=== PATIENT | female | born 1965 | race Caucasian/White ===

== ENCOUNTER 2017-02-08 07:55 | Emergency (ER) | payer OTHER ==
[2017-02-08 08:19] VITALS: PULSE 63; O2SAT 99
--- NOTE | 2017-02-08 08:25 | ERPHSYRPT ---
- History of Present Illness Time Seen by Provider: 02/08/17 08:19 Source: patient, model maker scale Patient Subjective Stated Complaint: pt reports skin irritation and redness to the neck and throat. states she just finished her radiation course which included 28 sessions of high dose radiation for throat cancer. states she is having pain to the neck and throat and belives she has an infection to the skin. reports using a cream to the site throughout the duration of her treatment. Triage Nursing Assessment: pt is aox3, resps easy and non labored, radial pulses strong and equal, skin pink warm and dry. an area of red, irritated skin noted to the neck and throat in the shape of a rectangle, skin is intact, no drainage or odor present. Physician History: This is a 51-year-old white female who states that she has a history of throat cancer she's been receiving radiation therapy for 28 days. She arrives with a well-circumscribed erythematous area to her anterior neck she states that for the past several days she's been having drainage she has not had any fevers. She is concerned that she has an infection in the skin. No other complaints. Patient does have a cream that she has been provided by her radiation therapy physician for the area. Past medical history includes peripheral neuropathy, throat cancer, high blood pressure, diabetes, arthritis, anxiety, depression. Past surgical history includes tubal ligation. Social history positive tobacco use in the past patient states she has quit. Timing/Duration: day(s) (2 days), other (patient with erythema anterior neck secondary to radiation treatment however past 2 days it has been having a drainage) Severity: moderate Modifying Factors: Improves With: nothing Associated Symptoms: rash (drainage from erythematous skin antterior neck), No nausea, No vomiting, No abdominal pain, No shortness of breath, No heartburn, No diaphoresis, No cough, No chills, No chest pain, No fever, No headaches, No loss of appetite, No malaise Allergies/Adverse Reactions: No Known Drug Allergies Allergy (Unverified 07/31/15 17:09) Home Medications: Carvedilol 6.25 mg [Coreg 6.25 MG] 6.25 mg PO DAILY 07/31/15 [History] Citalopram Hydrobromide [Celexa] 40 mg PO DAILY 07/31/15 [History] Gabapentin [Neurontin] 300 mg PO TID 07/31/15 [History] Meloxicam 15 mg [Meloxicam 15 MG] 15 mg PO DAILY 07/31/15 [History] Metformin HCl 1000 mg [Glucophage 1000 MG] 1,000 mg PO BID 07/31/15 [History] Trazodone HCl 50 mg [Desyrel 50 mg] 100 mg PO DAILY 07/31/15 [History] Hx Tetanus, Diphtheria Vaccination/Date Given: Yes Hx Influenza Vaccination/Date Given: No Hx Pneumococcal Vaccination/Date Given: Yes - Review of Systems Constitutional: No Fever, No Chills Eyes: No Symptoms Ears, Nose, & Throat: Throat Pain, No Ear Pain, No Ear Discharge, No Hearing Changes, No Tinnitus, No Nose Pain, No Nose Congestion, No Nose Discharge, No Sinus Drainage, No Epistaxis, No Mouth Pain, No Mouth Swelling, No Loose Teeth, No Throat Swelling, No Hoarse, No Painful Swallowing, No Snoring, No Stridor Respiratory: No Cough, No Dyspnea Cardiac: No Chest Pain, No Edema, No Syncope Abdominal/Gastrointestinal: No Abdominal Pain, No Nausea, No Vomiting, No Diarrhea Genitourinary Symptoms: No Dysuria Musculoskeletal: No Back Pain, No Neck Pain Skin: Other (erythematous skin anterior neck secondary to radiation treatment. Patient states drainage past 2 days), No Rash Neurological: No Dizziness, No Focal Weakness, No Sensory Changes Psychological: No Symptoms Endocrine: No Symptoms - Past Medical History Pertinent Past Medical History: Yes Neurological History: Peripheral Neuropathy Cardiac History: Hypertension Respiratory History: Other Endocrine Medical History: Diabetes Type II Musculoskeletal History: Other GI Medical History: GERD Psycho-Social History: Depression Other Medical History: insomnia, throat cancer, neck fusion - Past Surgical History Past Surgical History: Yes Musculoskeletal: Other Female Surgical History: Tubal Ligation Other Surgical History: neck - fusion - Social History Smoking Status: Former smoker How long have you smoked: yrs Exposure to second hand smoke: Yes Drug Use: none Patient Lives Alone: No - Female History Hx Last Menstrual Period: 01/09/17 - Nursing Vital Signs Nursing Vital Signs: Initial Vital Signs Temperature 98.5 F 02/08/17 08:01 Pulse Rate 63 02/08/17 08:01 Respiratory Rate 20 02/08/17 08:01 O2 Sat by Pulse Oximetry 99 02/08/17 08:01 Pain Scale Pain Intensity 6 - Physical Exam General Appearance: no apparent distress, alert, other (well-developed well- nourished whitefemale talks in a whisper) Eye Exam: PERRL/EOMI, eyes nml inspection Ears, Nose, Throat Exam: normal ENT inspection, TMs normal, pharynx normal, moist mucous membranes Neck Exam: normal inspection, non-tender, supple, full range of motion Respiratory Exam: normal breath sounds, lungs clear, No respiratory distress Cardiovascular Exam: regular rate/rhythm, normal heart sounds, normal peripheral pulses Gastrointestinal/Abdomen Exam: soft, normal bowel sounds, No tenderness, No mass Back Exam: normal inspection, normal range of motion, No CVA tenderness, No vertebral tenderness Extremity Exam: normal inspection, normal range of motion, pelvis stable Neurologic Exam: alert, oriented x 3, cooperative, normal mood/affect, nml cerebellar function, nml station & gait, sensation nml, No motor deficits Skin Exam: other (well-circumscribed 4" x 3" area anterior neck skin is erythematous) Lymphatic Exam: No adenopathy SpO2 Interpretation: normal (99%) SpO2: 99 Oxygen Delivery: Room Air - Course Nursing assessment & vital signs reviewed: Yes - Progress Progress: improved Progress Note: 02/08/17 08:24 This is a 51-year-old white female with history of throat cancer who is receiving radiation therapy. She has a well-circumscribed approximately 3" x 4" area to her anterior neck secondary to her radiation treatment which she has received over 28 days. Patient states she has been given a cream for of skin irritation by her local physician. Patient states that she is not having weepage and drainage from the area on physical examination the skin appears to be erythematous. Will go ahead and place patient on Bactrim DS one orally twice a day for 10 days. Patient has been advised to continue the cream which has been provided to her by her radiation physician she is to follow-up with her radiation physician. - Departure Time of Disposition: 08:25 Departure Disposition: Home Clinical Impression: skin irritation secondary to radiation Cellulitis Qualifiers: Site of cellulitis: neck Qualified Code(s): L03.221 - Cellulitis of neck Condition: Fair Critical Care Time: No Referrals: RIVER GRIGSBY [Primary Care Provider] - Additional Instructions: Return home. Bactrim DS one orally twice a day for 10 days. Follow-up with your family doctor or your radiation oncologist. Return for acute distress or for severe symptoms. Prescriptions: Smz/Tmp Ds Tablet [Bactrim Ds Tablet] 1 tab PO BID #20 tablet
== END 2017-02-08 08:38 | disposition home or self-care (01) ==
LOC: ED 07:55
DX: L03.221 Cellulitis of neck (principal); L59.8 Other specified disorders of the skin and subcutaneous tissue related to radiation; Z77.123 Contact with and (suspected) exposure to radon and other naturally occurring radiation; C14.0 Malignant neoplasm of pharynx, unspecified; I10 Essential (primary) hypertension; E11.9 Type 2 diabetes mellitus without complications; Z79.899 Other long term (current) drug therapy
CPT/HCPCS: 99281

== ENCOUNTER 2018-06-25 08:46 | Day surgery (SDC) | payer OTHER ==
[2018-06-25] MEDS ORDERED: DIPRIVAN 200 MG/20 ML IV ONE (08:47)
[2018-06-25] MEDS ORDERED: Ketamine HCl 50 MG/ML IV ONE (08:47)
[2018-06-25] MEDS ORDERED: Sodium Chloride 0.9(Preservative Free) 10 ML IJ ONE (08:47)
[2018-06-25] MEDS ORDERED: Xylocaine 1% Vial 30 ML PF IJ ONE (08:47)
[2018-06-25] MEDS ORDERED: Depo-Medrol 40 MG/ML IM ONE (08:47)
--- NOTE | 2018-06-25 11:29 | XRAY ---
15 seconds fluoroscopy time in surgery for L5-S1 BRET.
--- NOTE | 2018-06-25 11:30 | XRAY ---
Indication: L5-S1 BRET. Intraoperative fluoroscopy was provided for 15 seconds. 2 digital spot images submitted for interpretation demonstrates posterior midline spinal needle tip projecting just posterior to the L5-S1 interspace. Correlate with intraoperative findings/report.
[2018-06-25] MEDS ORDERED: Lactated Ringers 1,000 ML IV ONE (14:27)
== END 2018-06-25 10:54 | disposition home or self-care (01) ==
LOC: SDC-PAIN 08:46
PROVIDERS: ATTEND Psychiatry & Neurology Pain Medicine
DX: M54.16 Radiculopathy, lumbar region (principal); I10 Essential (primary) hypertension; E11.9 Type 2 diabetes mellitus without complications; J44.9 Chronic obstructive pulmonary disease, unspecified; Z79.899 Other long term (current) drug therapy
CPT/HCPCS: 72100; 77003; J1030; J2001; J2704

== ENCOUNTER 2018-10-08 09:54 | Day surgery (SDC) | payer OTHER ==
[2018-10-08] MEDS ORDERED: Sodium Chloride 0.9(Preservative Free) 10 ML IJ ONE (09:55)
[2018-10-08] MEDS ORDERED: Depo-Medrol 40 MG/ML IM ONE (09:55)
[2018-10-08] MEDS ORDERED: Ketamine HCl 50 MG/ML ONE (11:14)
[2018-10-08] MEDS ORDERED: DIPRIVAN 200 MG/20 ML IV ONE (11:14)
--- NOTE | 2018-10-08 12:34 | XRAY ---
Indication: Left L3-S1 transforaminal BRET. Intraoperative fluoroscopy was provided for 22 seconds. 3 digital spot images submitted for interpretation demonstrates posterior needle tips projecting over the expected course of the left L3-L5 nerve roots. Small amount of contrast injected for needle tip placement. Correlate with intraoperative findings/report.
--- NOTE | 2018-10-08 12:37 | XRAY ---
22 seconds fluoroscopy time in surgery for left L3-S1 BRET.
[2018-10-08] MEDS ORDERED: Lactated Ringers 1,000 ML IV ONE (13:27)
== END 2018-10-08 11:42 | disposition home or self-care (01) ==
LOC: SDC-PAIN 09:54
PROVIDERS: ATTEND Psychiatry & Neurology Pain Medicine
DX: M54.16 Radiculopathy, lumbar region (principal); I10 Essential (primary) hypertension; E11.9 Type 2 diabetes mellitus without complications; J44.9 Chronic obstructive pulmonary disease, unspecified; F41.8 Other specified anxiety disorders; K21.9 Gastro-esophageal reflux disease without esophagitis
CPT/HCPCS: 64483; 64484; 72020; 77003; 82962; 84703; J1030; J2704; Q9966

== ENCOUNTER 2019-02-09 04:28 | Emergency (ER) | payer OTHER ==
--- NOTE | 2019-02-09 04:41 | ERPHSYRPT ---
- History of Present Illness Time Seen by Provider: 02/09/19 04:40 Source: patient Exam Limitations: no limitations Physician History: 53 y/o white female with chronic neck and low back pain issues presents with left lower back pain described as painful, shooting numbness down left buttock into left foot. no acute injury. pt states sx present 2 days ago. seen by dr. galvan for another condition saturday, but did not have this pain until saturday pm. pt has a pain specialist, dr. garza. Timing/Duration: day(s) (2) Method of Injury: other (no injury) Quality: radiating, sharp Back Pain Location: lumbar spine Back Pain Radiation: buttocks, feet (left) Severity of Pain-Max: moderate Severity of Pain-Current: moderate Associated Symptoms: numbness in legs/feet, tingling in legs/feet, lower back pain Previous symptoms: same symptoms as today Allergies/Adverse Reactions: bee venom protein (honey bee) Allergy (Verified 02/08/17 08:20) Zxdwfyn-Gle-Uyr Reductase Inhibitor Allergy (Verified 02/08/17 08:20) Home Medications: Carvedilol 6.25 mg [Coreg 6.25 MG] 6.25 mg PO DAILY 07/31/15 [History] Gabapentin [Neurontin] 600 mg PO TID 07/31/15 [History] Metformin HCl 1000 mg [Glucophage 1000 MG] 500 mg PO BID 07/31/15 [History] Trazodone HCl 50 mg [Desyrel 50 mg] 100 mg PO DAILY 07/31/15 [History] Amitriptyline HCl 25 mg [Elavil 25 mg] 25 mg PO 06/04/18 [History] Baclofen 10 mg [Lioresal 10 mg] 10 mg PO TID 06/04/18 [History] Bupropion HCl [Wellbutrin Sr] 150 mg PO 06/04/18 [History] Lisinopril/Hydrochlorothiazide [Lisinopril-Hctz 10-12.5 mg Tab] 1 each PO [History] Meclizine HCl 25 mg [Antivert 25 mg] 25 mg PO 06/04/18 [History] Omeprazole 20 06/04/18 [History] Venlafaxine HCl [Effexor] 100 mg PO 06/04/18 [History] Hx Tetanus, Diphtheria Vaccination/Date Given: Yes Hx Influenza Vaccination/Date Given: No Hx Pneumococcal Vaccination/Date Given: Yes - Review of Systems Constitutional: No Symptoms Eyes: No Symptoms Ears, Nose, & Throat: No Symptoms Respiratory: No Symptoms Cardiac: No Symptoms Abdominal/Gastrointestinal: No Symptoms Genitourinary Symptoms: No Symptoms Musculoskeletal: Back Pain Skin: No Symptoms Neurological: No Symptoms Psychological: No Symptoms Endocrine: No Symptoms Hematologic/Lymphatic: No Symptoms Immunological/Allergic: No Symptoms All Other Systems: Reviewed and Negative - Past Medical History Pertinent Past Medical History: Yes Neurological History: Peripheral Neuropathy ENT History: Other Cardiac History: Hypertension Respiratory History: Other Endocrine Medical History: Diabetes Type II Musculoskeletal History: Arthritis, Degenerative Disk Disease GI Medical History: GERD History: No Pertinent History Psycho-Social History: Anxiety Female Reproductive Disorders: No Pertinent History Other Medical History: throat CA, now in remission - Past Surgical History Past Surgical History: Yes Neuro Surgical History: No Pertinent History Cardiac: No Pertinent History Respiratory: No Pertinent History Gastrointestinal: No Pertinent History Genitourinary: No Pertinent History, Kidney Transplant Musculoskeletal: Other Female Surgical History: No Pertinent History Other Surgical History: neck surgery - Social History Smoking Status: Former smoker How long have you smoked: yrs Exposure to second hand smoke: Yes Drug Use: marijuana, methamphetamines Patient Lives Alone: No - Nursing Vital Signs Nursing Vital Signs: Initial Vital Signs Temperature 97.6 F 02/09/19 04:28 Pulse Rate 91 H 02/09/19 04:28 Respiratory Rate 18 02/09/19 04:28 Blood Pressure 158/86 02/09/19 04:28 O2 Sat by Pulse Oximetry 99 02/09/19 04:28 Pain Scale Pain Intensity [Left Posterior 10 Back] Pain Intensity 10 - Physical Exam General Appearance: no apparent distress, alert, anxiety Eye Exam: PERRL/EOMI, eyes nml inspection Ears, Nose, Throat Exam: normal ENT inspection, moist mucous membranes Neck Exam: normal inspection, non-tender, supple, full range of motion Respiratory Exam: No chest tenderness Gastrointestinal Exam: No tenderness Pelvic Exam: not done Rectal Exam: not done Back Exam: normal inspection, normal range of motion, No CVA tenderness, No vertebral tenderness Extremity Exam: normal inspection, normal range of motion, pelvis stable Neurologic Exam: alert, oriented x 3, cooperative, patient accounts manager II-XII nml as tested Skin Exam: normal color, warm, dry Lymphatic Exam: No adenopathy SpO2 Interpretation: normal O2 Delivery: Room Air - Course Nursing assessment & vital signs reviewed: Yes - Progress Progress: unchanged Counseled pt/family regarding: diagnosis, need for follow-up - Departure Departure Disposition: Home Clinical Impression: Sciatica Condition: Stable Critical Care Time: No Referrals: JEMMA GALVAN MD [Primary Care Provider] - Additional Instructions: follow up with dr. galvan and pain specialist for further management of your sciatica. stop your baclofen while taking soma/carisoprodol medication Prescriptions: Carisoprodol 350 mg [Soma 350 mg] 350 mg PO Q12H PRN PRN #6 tablet PRN Reason: Muscle Spasms Prednisone 5 mg [Deltasone 5 mg] 5 mg PO TID #12 tablet
[2019-02-09] MEDS ORDERED: solu-MEDROL 125 MG IM ONE (05:04)
[2019-02-09] MEDS ORDERED: Norflex 60 MG/2 ML IM ONE (05:05)
[2019-02-09] MEDS ORDERED: Norflex 60 MG/2 ML ONE (05:10)
[2019-02-09] MEDS ORDERED: solu-MEDROL 125 MG ONE (05:10)
[2019-02-09 05:18] VITALS: BP 120/100; PULSE 80; O2SAT 97
== END 2019-02-09 05:23 | disposition home or self-care (01) ==
LOC: ED 04:28
DX: M54.30 Sciatica, unspecified side (principal)
CPT/HCPCS: 96372; 99284; J2360; J2930

== ENCOUNTER 2022-04-19 03:22 | Emergency (ER) | payer OTHER ==
--- NOTE | 2022-04-19 03:31 | ERPHSYRPT ---
- History of Present Illness Time Seen by Provider: 04/19/22 03:31 Source: patient, family Exam Limitations: no limitations Physician History: This is a 56-year-old white female patient who has chronic neck and back issues and was getting up to use the bathroom in the dark and when she returned she reached out to grab the side of the bed and it was not there and she lost her balance, then she fell forward hitting her head. Patient is on Plavix. She did not lose consciousness per her report. She has some mild neck pain. There are no lacerations to her scalp. Patient is diabetic, has a history of hypertension, peripheral neuropathy, anxiety and gastroesophageal reflux disease. She has no other complaints of pain. Occurred: just prior to arrival Reason for Fall: fell from standing pos Injuries/Pain Location: head, neck Loss of Consciousness: no loss of consciousness Quality: aching Severity of Pain-Max: mild Severity of Pain-Current: mild Modifying Factors: Improves With: nothing Associated Symptoms (Fall): neck pain (Mild), No back pain, No chest pain, No dizziness, No extremity injury Allergies/Adverse Reactions: bee venom protein (honey bee) Allergy (Verified 04/19/22 03:44) lamotrigine Allergy (Verified 04/19/22 03:44) oxcarbazepine Allergy (Verified 04/19/22 03:44) Rash Gtirjod-NGE-QxC Reductase Inhibitor [Wlnitki-Sqm-Wqe Reductase Inhibitor] Allergy (Verified 04/19/22 03:44) Home Medications: Carvedilol [Coreg 6.25 MG] 12.5 mg PO BID 07/31/15 [History] Gabapentin [Neurontin] See Rx Instructions .ROUTE .COMPLEX 07/31/15 [History] Metformin HCl 1000 mg [Glucophage 1000 MG] 500 mg PO BID 07/31/15 [History] Trazodone HCl 50 mg [Desyrel 50 mg] 100 mg PO DAILY 07/31/15 [History] Amitriptyline HCl 25 mg [Elavil 25 mg] 150 mg PO HS 06/04/18 [History] Baclofen 10 mg [Lioresal 10 mg] 10 mg PO TID 06/04/18 [History] Lisinopril/Hydrochlorothiazide [Lisinopril-Hctz 10-12.5 mg Tab] 1 each PO DAILY 06/04/18 [History] Meclizine HCl 25 mg [Antivert 25 mg] 12.5 mg PO TID PRN 06/04/18 [History] Omeprazole 40 mg PO DAILY 06/04/18 [History] buPROPion HCL [Wellbutrin Sr] 200 mg PO BID 06/04/18 [History] Atorvastatin Calcium 40 mg PO DAILY 04/19/22 [History] Buspirone HCl 7.5 mg PO BID 04/19/22 [History] Cilostazol 100 mg [Pletal 100 MG] 100 mg PO BID 04/19/22 [History] Clopidogrel Bisulfate [Plavix] 75 mg PO DAILY 04/19/22 [History] Ezetimibe 10 mg [Zetia 10 MG] 10 mg PO DAILY 04/19/22 [History] Famotidine 20 mg PO BID 04/19/22 [History] Hx Tetanus, Diphtheria Vaccination/Date Given: Yes Hx Influenza Vaccination/Date Given: No Hx Pneumococcal Vaccination/Date Given: Yes Travel Risk - International Travel Have you traveled outside of the country in past 3 weeks: No - Coronavirus Screening Are you exhibiting any of the following symptoms?: No Close contact with a COVID-19 positive Pt in past 14-21 Days: No - Review of Systems Constitutional: No Symptoms Eyes: No Symptoms Ears, Nose, & Throat: No Symptoms Respiratory: No Symptoms Cardiac: No Symptoms Abdominal/Gastrointestinal: No Symptoms Genitourinary Symptoms: No Symptoms Musculoskeletal: Neck Pain, Fall Skin: No Symptoms Neurological: Headache Psychological: No Symptoms Endocrine: No Symptoms Hematologic/Lymphatic: No Symptoms Immunological/Allergic: No Symptoms All Other Systems: Reviewed and Negative - Past Medical History Pertinent Past Medical History: Yes Neurological History: Peripheral Neuropathy ENT History: Other Cardiac History: High Cholesterol, Hypertension Respiratory History: No Pertinent History Endocrine Medical History: Diabetes Type II, Hypothyroidism, Other Musculoskeletal History: Degenerative Disk Disease, Fractures, Osteoarthritis GI Medical History: GERD History: No Pertinent History Psycho-Social History: Anxiety Female Reproductive Disorders: No Pertinent History Other Medical History: 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 SX HX - C4-5 FUSION - Past Surgical History Past Surgical History: Yes Neuro Surgical History: No Pertinent History Cardiac: No Pertinent History Respiratory: No Pertinent History Gastrointestinal: No Pertinent History Genitourinary: No Pertinent History, Kidney Transplant Musculoskeletal: Other Female Surgical History: No Pertinent History Other Surgical History: neck surgery - Social History Smoking Status: Former smoker How long have you smoked: yrs Exposure to second hand smoke: Yes Drug Use: marijuana, methamphetamines Patient Lives Alone: No - Nursing Vital Signs Nursing Vital Signs: Initial Vital Signs Temperature 97.8 F 04/19/22 03:33 Pulse Rate 77 04/19/22 03:33 Respiratory Rate 16 04/19/22 03:33 Blood Pressure 140/69 04/19/22 03:33 O2 Sat by Pulse Oximetry 98 04/19/22 03:33 Pain Scale Pain Intensity 7 - [place] Coma Score Best Eye Response ([place]): (4) open spontaneously Best Verbal Response ([place]): (5) oriented Best Motor Response ([place]): (6) obeys commands [place] Total: 15 - Physical Exam General Appearance: no apparent distress, alert, anxiety Head Injury: no evidence of injury Eye Exam: PERRL/EOMI, eyes nml inspection ENT Exam: airway nml, nml ext.inspection, hearing grossly normal Neck Exam: supple, trachea midline, full range of motion, normal alignment, normal inspection Respiratory/Chest Exam: No chest tenderness, No respiratory distress, No ecchymosis, No crepitus Cardiovascular Exam: normal heart sounds Gastrointestinal Exam: No tenderness Rectal Exam: not done Back Exam: normal inspection, normal range of motion, No CVA tenderness, No vertebral tenderness Extremity Exam: normal inspection, normal range of motion, capillary refill <3 sec, pelvis stable Neurologic Exam: alert, oriented x 3, cooperative, business strategy manager II-XII nml as tested, normal mood/affect, nml cerebellar function, nml station & gait, sensation nml Skin Exam: normal color, warm, dry SpO2 Interpretation: normal O2 Delivery: Room Air - Course Nursing assessment & vital signs reviewed: Yes Ordered Tests: Active Orders 24 hr Category Date Time Status CERVICAL SPINE WO CONTRAST [CT] Stat Exams 04/19/22 03:39 Taken HEAD WITHOUT CONTRAST [CT] Stat Exams 04/19/22 03:39 Taken - Progress Progress: improved Progress Note: 04/19/22 04:54 CT scan of the head without contrast shows no acute intracranial abnormality. CT scan of the cervical spine without contrast shows no acute fracture or subluxation. Counseled pt/family regarding: diagnosis, need for follow-up, rad results - Departure Departure Disposition: Home Clinical Impression: Fall with no significant injury Condition: Stable Critical Care Time: No Referrals: JEMMA CARTER MD [Primary Care Provider] - Follow up/PCP as directed Additional Instructions: Continue medication as prescribed. Follow-up with primary care provider for further evaluation management.
[2022-04-19 03:50] VITALS: BP 140/69
[2022-04-19 05:01] VITALS: PULSE 72; O2SAT 97
--- NOTE | 2022-04-19 08:50 | XRAY ---
Indication: Pain following fall. Multiple contiguous axial images obtained through the head without contrast. Comparison: None Left posterior vertex demonstrates small focus scalp hematoma. Otherwise normal appearing brain parenchyma, ventricles, and bony calvarium for patient's age. Visualized paranasal sinuses and mastoid air cells are clear. Impression: Left vertex scalp hematoma. No underlying fracture or acute intracranial abnormalities. Comment: Preliminary interpretation made by [facility]. No critical discrepancy.
--- NOTE | 2022-04-19 08:51 | XRAY ---
Indication: Pain following fall. Multiple contiguous axial images obtained through the cervical spine. Sagittal and coronal reformatted images obtained. Comparison: None C4-C7 fusion hardware/intervertebral spacers produces beam artifact limiting these levels. Axial images grossly negative for acute fracture or suspicious bony lesions. Mild/moderate C5-C7 degenerative endplate spurring. Additional moderate atlantoaxial degenerative changes. Sagittal and coronal reformatted images demonstrate normal alignment. No acute compression fracture, subluxation, or jumped facet. Normal appearing craniocervical junction. Visualized noncontrasted soft tissues including lung apices are clear. Impression: 1. Beam artifact from C4-C7 fusion hardware. 2. Grossly negative for acute fracture/subluxation. 3. Multilevel degenerative changes. Comment: Preliminary interpretation made by [facility]. No critical discrepancy.
== END 2022-04-19 05:01 | disposition home or self-care (01) ==
LOC: ED 03:22
DX: Z04.3 Encounter for examination and observation following other accident (principal); M54.2 Cervicalgia; E11.42 Type 2 diabetes mellitus with diabetic polyneuropathy; I10 Essential (primary) hypertension; E78.5 Hyperlipidemia, unspecified; Z79.84 Long term (current) use of oral hypoglycemic drugs; Z79.02 Long term (current) use of antithrombotics/antiplatelets; Z79.899 Other long term (current) drug therapy
CPT/HCPCS: 70450; 72125; 99283

== ENCOUNTER 2022-11-30 12:20 | Emergency (ER) | payer OTHER ==
--- NOTE | 2022-11-30 12:25 | ERPHSYRPT ---
- History of Present Illness Time Seen by Provider: 11/30/22 12:25 Source: patient Exam Limitations: no limitations Physician History: This is a 57-year-old obese white female patient of Dr. Carter who just saw Dr. Carter within the last week at her office appointment. Patient falls frequently. Patient is on Plavix. Yesterday, patient did feel some weakness and off balance and today she actually fell. Patient uses all cane or a walker. Despite those ambulating aids, she tends to fall. Today she fell and hit her head on the left side causing abrasion over the left forehead, abrasions of bilateral hands and abrasions of bilateral anterior knees. Patient is diabetic, she has hypertension, hyperlipidemia, anxiety, gastroesophageal reflux disease, chronic neck and back issues and peripheral neuropathy. She currently has no chest pain and denies shortness of breath. She denies abdominal pain. Occurred: just prior to arrival Reason for Fall: lost balance Injuries/Pain Location: head Loss of Consciousness: no loss of consciousness Quality: aching, sharpness Severity of Pain-Max: mild Severity of Pain-Current: mild Modifying Factors: Improves With: movement Associated Symptoms (Fall): headache, No abdominal pain, No back pain, No confusion, No chest pain, No neck pain Allergies/Adverse Reactions: bee venom protein (honey bee) Allergy (Verified 11/30/22 12:30) lamotrigine Allergy (Verified 11/30/22 12:30) oxcarbazepine Allergy (Verified 11/30/22 12:30) Rash Ppigand-SZX-EuA Reductase Inhibitor [Wgansfc-Tej-Hha Reductase Inhibitor] Allergy (Verified 11/30/22 12:30) Home Medications: Carvedilol [Coreg 6.25 MG] 12.5 mg PO BID 07/31/15 [History] Gabapentin [Neurontin] See Rx Instructions .ROUTE .COMPLEX 07/31/15 [History] Metformin HCl 1000 mg [Glucophage 1000 MG] 500 mg PO BID 07/31/15 [History] Trazodone HCl 50 mg [Desyrel 50 mg] 100 mg PO DAILY 07/31/15 [History] Amitriptyline HCl 25 mg [Elavil 25 mg] 150 mg PO HS 06/04/18 [History] Baclofen 10 mg [Lioresal 10 mg] 10 mg PO TID 06/04/18 [History] Lisinopril/Hydrochlorothiazide [Lisinopril-Hctz 10-12.5 mg Tab] 1 each PO DAILY 06/04/18 [History] Meclizine HCl 25 mg [Antivert 25 mg] 12.5 mg PO TID PRN 06/04/18 [History] Omeprazole 40 mg PO DAILY 06/04/18 [History] buPROPion HCL [Wellbutrin Sr] 200 mg PO BID 06/04/18 [History] Atorvastatin Calcium 40 mg PO DAILY 04/19/22 [History] Buspirone HCl 7.5 mg PO BID 04/19/22 [History] Cilostazol 100 mg [Pletal 100 MG] 100 mg PO BID 04/19/22 [History] Clopidogrel Bisulfate [Plavix] 75 mg PO DAILY 04/19/22 [History] Ezetimibe 10 mg [Zetia 10 MG] 10 mg PO DAILY 04/19/22 [History] Famotidine 20 mg PO BID 04/19/22 [History] Hx Tetanus, Diphtheria Vaccination/Date Given: Yes Hx Influenza Vaccination/Date Given: No Hx Pneumococcal Vaccination/Date Given: Yes Travel Risk - International Travel Have you traveled outside of the country in past 3 weeks: No - Coronavirus Screening Are you exhibiting any of the following symptoms?: No Close contact with a COVID-19 positive Pt in past 14-21 Days: No - Vaccine Status Have you recieved a Covid-19 vaccination: Yes 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[employer] - Vaccination Dates Date of 2cond Vaccination (if applicable): n/a - Review of Systems Constitutional: No Symptoms Eyes: No Symptoms Ears, Nose, & Throat: No Symptoms Respiratory: No Symptoms Cardiac: No Symptoms Abdominal/Gastrointestinal: No Symptoms Genitourinary Symptoms: No Symptoms Musculoskeletal: Fall, Injury (Bilateral anterior knees and bilateral hands) Skin: Other (Abrasion left forehead, skin of bilateral hands and skin of bilateral anterior knees) Neurological: No Symptoms Psychological: No Symptoms Endocrine: No Symptoms Hematologic/Lymphatic: No Symptoms Immunological/Allergic: No Symptoms All Other Systems: Reviewed and Negative - Past Medical History Pertinent Past Medical History: Yes Neurological History: Peripheral Neuropathy ENT History: Other Cardiac History: High Cholesterol, Hypertension Respiratory History: No Pertinent History Endocrine Medical History: Diabetes Type II, Hypothyroidism, Other Musculoskeletal History: Degenerative Disk Disease, Fractures, Osteoarthritis GI Medical History: GERD History: No Pertinent History Psycho-Social History: Anxiety Female Reproductive Disorders: No Pertinent History Other Medical History: 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 SX HX - C4-5 FUSION - Past Surgical History Past Surgical History: Yes Neuro Surgical History: No Pertinent History Cardiac: No Pertinent History Respiratory: No Pertinent History Gastrointestinal: No Pertinent History Genitourinary: No Pertinent History, Kidney Transplant Musculoskeletal: Other Female Surgical History: No Pertinent History Other Surgical History: neck surgery - Social History Smoking Status: Former smoker How long have you smoked: yrs Exposure to second hand smoke: Yes Drug Use: marijuana, methamphetamines Patient Lives Alone: No - Nursing Vital Signs Nursing Vital Signs: Initial Vital Signs Pulse Rate 81 11/30/22 12:30 Respiratory Rate 18 11/30/22 12:30 Blood Pressure 136/86 11/30/22 12:30 O2 Sat by Pulse Oximetry 98 11/30/22 12:30 Pain Scale Pain Intensity 0 - James Coma Score Best Eye Response (James): (4) open spontaneously Best Verbal Response ([place]): (5) oriented Best Motor Response ([place]): (6) obeys commands [place] Total: 15 - Physical Exam General Appearance: no apparent distress, alert, anxiety, obese Head Injury: tenderness (Abrasion left forehead) Eye Exam: PERRL/EOMI, post op pupil defect (L) ENT Exam: airway nml, nml ext.inspection, No evidence of ENT injury Neck Exam: supple, trachea midline, full range of motion, normal alignment, normal inspection Respiratory/Chest Exam: normal breath sounds, No chest tenderness, No respiratory distress, No ecchymosis, No crepitus, No rhonchi, No wheezing, No accessory muscle use, No rib tenderness Cardiovascular Exam: normal heart sounds, regular rate/rhythm Gastrointestinal Exam: soft, normal bowel sounds, No tenderness Rectal Exam: not done Back Exam: normal inspection, normal range of motion, No CVA tenderness Extremity Exam: normal range of motion, capillary refill <3 sec, bony point tenderness (Bilateral anterior knees) Neurologic Exam: alert, oriented x 3, cooperative, wheel braider II-XII nml as tested, normal mood/affect Skin Exam: abrasion (Left forehead, bilateral hands) SpO2 Interpretation: normal (, bilateral anterior knees) O2 Delivery: Room Air - Course Nursing assessment & vital signs reviewed: Yes Ordered Tests: Active Orders 24 hr Category Date Time Status HAND (MINIMUM 3 VIEWS) Stat Exams 11/30/22 12:48 Completed HAND (MINIMUM 3 VIEWS) Stat Exams 11/30/22 12:49 Completed HEAD WITHOUT CONTRAST [CT] Stat Exams 11/30/22 12:48 Completed KNEE (3 VIEWS) Stat Exams 11/30/22 12:48 Completed KNEE (3 VIEWS) Stat Exams 11/30/22 12:49 Completed - Progress Progress: improved, pain not gone completely, re-examined Progress Note: 11/30/22 14:15 This patient's medical issue is 1 of moderate complexity. Level complexity in the work-up performed is based on review of the patient's past medical history, review of the patient's medication list, review of the patient's drug allergy list, history of present illness and physical findings on examination. The work-up in this patient includes x-ray of right hand, x-ray of left hand, x-ray of right knee, x-ray of left knee, CT scan of head without contrast. The following x-rays that were performed were interpreted by the radiologist and I reviewed the impression: X-ray of right hand shows degenerative changes without evidence of fracture or dislocation. X-ray of left hand shows degenerative changes without evidence of fracture or dislocation. X-ray of left knee shows no acute fracture or dislocation. X-ray of right knee shows no acute fracture or dislocation. CT scan of head without contrast is a normal study. There are no acute intracranial abnormalities. Counseled pt/family regarding: diagnosis, need for follow-up, rad results Medical Desision Making - Independent Historian Additional History obtained from: Child, Family - Diagnostic Testing Diagnostic test were ordered, analyzed, and reviewed by me: Yes Radiological Interpretation: Reviewed by me - Risk of complications Low Risk: Low risk of morbidity from additional dx testing or treatment - Departure Departure Disposition: Home Clinical Impression: Fall with no significant injury, Abrasions of multiple sites Condition: Stable Critical Care Time: No Referrals: JEMMA CARTER MD [Primary Care Provider] - Follow up/PCP as directed Additional Instructions: Follow-up with your primary care provider today by phone to make arrangements for follow-up appointment for further evaluation management including referral to physical therapy for strengthening, range of motion and balance improvement. Keep all abrasion sites clean daily with soap and water and may apply antibiotic ointment of choice to the abrasion sites. Continue your other medication as pr escribed.
[2022-11-30 12:41] VITALS: RESP 18; TEMP 96.6
--- NOTE | 2022-11-30 13:30 | XRAY ---
Indication: Dizziness following fall. Multiple contiguous axial images obtained through the head without contrast. Comparison: April 19, 2022 Normal appearing brain parenchyma, ventricles, and bony calvarium for patient's age. Visualized paranasal sinuses and mastoid air cells are clear. Impression: Continued normal CT head without contrast exam.
--- NOTE | 2022-11-30 13:32 | XRAY ---
Indication: Injury following fall. Comparison: None 3 view left knee demonstrates minimal scattered vascular calcifications. No other bony, articular, or soft tissue abnormalities.
--- NOTE | 2022-11-30 13:32 | XRAY ---
Indication: Injury following fall. Comparison: None 3 view left hand demonstrates mild 1st metacarpal multangular degenerative changes. No other bony, articular, or soft tissue abnormalities.
--- NOTE | 2022-11-30 13:32 | XRAY ---
Indication: Injury following fall. Comparison: None 3 view right hand demonstrates mild 1st metacarpal multangular degenerative changes. No other bony, articular, or soft tissue abnormalities.
--- NOTE | 2022-11-30 13:34 | XRAY ---
Indication: Injury following fall. Comparison: None 3 view right knee demonstrates tiny posterior fabella and minimal scattered vascular calcifications. No other bony, articular, or soft tissue abnormalities.
[2022-11-30 14:11] VITALS: BP 91/46; PULSE 81; O2SAT 93
== END 2022-11-30 14:46 | disposition home or self-care (01) ==
LOC: ED 12:20
DX: S00.81XA Abrasion of other part of head, initial encounter (principal); S60.512A Abrasion of left hand, initial encounter; S60.511A Abrasion of right hand, initial encounter; S80.212A Abrasion, left knee, initial encounter; S80.211A Abrasion, right knee, initial encounter; W19.XXXA Unspecified fall, initial encounter; Z91.81 History of falling; E11.42 Type 2 diabetes mellitus with diabetic polyneuropathy; E78.5 Hyperlipidemia, unspecified; I10 Essential (primary) hypertension; Z79.02 Long term (current) use of antithrombotics/antiplatelets; Z79.84 Long term (current) use of oral hypoglycemic drugs; Z79.899 Other long term (current) drug therapy
CPT/HCPCS: 70450; 73130; 73562; 99283

== ENCOUNTER 2023-01-15 19:05 | Emergency (ER) | payer OTHER ==
--- NOTE | 2023-01-15 19:15 | ERPHSYRPT ---
- History of Present Illness Time Seen by Provider: 01/15/23 19:14 Source: patient, family Exam Limitations: no limitations Physician History: This is a 57-year-old white female patient of Dr. Carter who has a history of frequent falls. Patient has multiple medical issues including diabetes, hypertension, hyperlipidemia, anxiety issues, gastroesophageal reflux disease, peripheral neuropathy, as well as chronic back and neck pain. Patient usually walks with a cane or a walker. Prior to arrival, patient was on the floor folding close she got up stood up, then fell backwards hitting the back of her head. She arrives to the emergency department with no laceration but does have tenderness in the occipital region. She states she did not lose consciousness. However, the patient is on Plavix. Patient denies chest pain. Patient denies shortness of breath. Patient denies abdominal pain. Occurred: just prior to arrival Reason for Fall: fell from standing pos Injuries/Pain Location: head (Occipital region) Loss of Consciousness: no loss of consciousness Quality: aching Severity of Pain-Max: mild (To moderate) Severity of Pain-Current: mild (To moderate) Associated Symptoms (Fall): headache (Typical region), neck pain (Chronic not worse after fall) Allergies/Adverse Reactions: bee venom protein (honey bee) Allergy (Verified 01/15/23 19:51) lamotrigine Allergy (Verified 01/15/23 19:51) oxcarbazepine Allergy (Verified 01/15/23 19:51) Rash Dulhrul-DJK-PpO Reductase Inhibitor [Fpatdnj-Dff-Vny Reductase Inhibitor] Allergy (Verified 01/15/23 19:51) Home Medications: Carvedilol [Coreg 6.25 MG] 12.5 mg PO BID 07/31/15 [History] Metformin HCl 1000 mg [Glucophage 1000 MG] 1,000 mg PO BID 07/31/15 [History] Amitriptyline HCl 25 mg [Elavil 25 mg] 150 mg PO HS 06/04/18 [History] Baclofen 10 mg [Lioresal 10 mg] 10 mg PO TID 06/04/18 [History] Meclizine HCl 25 mg [Antivert 25 mg] 12.5 mg PO TID PRN 06/04/18 [History] Omeprazole 40 mg PO BID 06/04/18 [History] buPROPion HCL [Wellbutrin Sr] 200 mg PO BID 06/04/18 [History] Buspirone HCl 7.5 mg PO BID 04/19/22 [History] Cilostazol 100 mg [Pletal 100 MG] 100 mg PO BID 04/19/22 [History] Clopidogrel Bisulfate [Plavix] 75 mg PO DAILY 04/19/22 [History] Ezetimibe 10 mg [Zetia 10 MG] 10 mg PO DAILY 04/19/22 [History] Lisinopril 10 mg [Zestril 10 MG] 10 mg PO DAILY 01/15/23 [History] Hx Tetanus, Diphtheria Vaccination/Date Given: Yes Hx Influenza Vaccination/Date Given: No Hx Pneumococcal Vaccination/Date Given: Yes Travel Risk - International Travel Have you traveled outside of the country in past 3 weeks: No - Coronavirus Screening Are you exhibiting any of the following symptoms?: No Close contact with a COVID-19 positive Pt in past 14-21 Days: No - Vaccine Status Have you recieved a Covid-19 vaccination: Yes 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[employer] - Vaccination Dates Date of 2cond Vaccination (if applicable): n/a - Review of Systems Constitutional: No Symptoms Ears, Nose, & Throat: No Symptoms Respiratory: No Symptoms Cardiac: No Symptoms Abdominal/Gastrointestinal: No Symptoms Genitourinary Symptoms: No Symptoms Musculoskeletal: Neck Pain Skin: No Symptoms Neurological: Headache (Septal region after fall) Psychological: No Symptoms Endocrine: No Symptoms Hematologic/Lymphatic: No Symptoms Immunological/Allergic: No Symptoms All Other Systems: Reviewed and Negative - Past Medical History Pertinent Past Medical History: Yes Neurological History: Stroke ENT History: Other Cardiac History: High Cholesterol, Hypertension Respiratory History: No Pertinent History Endocrine Medical History: Diabetes Type II Musculoskeletal History: Osteoarthritis GI Medical History: GERD History: No Pertinent History Psycho-Social History: Anxiety Female Reproductive Disorders: No Pertinent History Other Medical History: 7 STROKES, CEREBRAL ATHEROSCLEROSIS, CERVICAL SPONDYLITIC CORD COMPRESSION, C-SPINE SURGERY AT C4-5 IN 2010, C-SPINE FUSION, DMII WITH POLYNEUROPATHY, DIFFUSE AXONAL NEUROPATHY, THROAT CANCER, CERVICAL RADICULOPATHY, VERY LOW BP. - Past Surgical History Past Surgical History: Yes Neuro Surgical History: No Pertinent History Cardiac: No Pertinent History Respiratory: No Pertinent History Gastrointestinal: No Pertinent History Genitourinary: No Pertinent History, Kidney Transplant Musculoskeletal: Other Female Surgical History: No Pertinent History Other Surgical History: neck surgery - Social History Smoking Status: Former smoker How long have you smoked: yrs Exposure to second hand smoke: Yes Drug Use: marijuana, methamphetamines Patient Lives Alone: No - Nursing Vital Signs Nursing Vital Signs: Initial Vital Signs Temperature 99.0 F 01/15/23 19:41 Pulse Rate 92 H 01/15/23 19:41 Respiratory Rate 18 01/15/23 19:41 Blood Pressure 114/69 01/15/23 19:41 O2 Sat by Pulse Oximetry 95 01/15/23 19:41 Pain Scale Pain Intensity 9 - James Coma Score Best Eye Response ([place]): (4) open spontaneously Best Verbal Response ([place]): (5) oriented Best Motor Response ([place]): (6) obeys commands [place] Total: 15 - Physical Exam General Appearance: no apparent distress, alert Head Injury: tenderness (Stable region without hematoma or laceration) Eye Exam: PERRL/EOMI, eyes nml inspection ENT Exam: airway nml, nml ext.inspection, No evidence of ENT injury, No dental injury Neck Exam: supple, trachea midline, full range of motion, normal alignment, normal inspection Respiratory/Chest Exam: No chest tenderness, No respiratory distress Gastrointestinal Exam: No tenderness Rectal Exam: not done Back Exam: normal inspection, normal range of motion, No CVA tenderness, No vertebral tenderness Extremity Exam: normal inspection, normal range of motion, No evidence of injury Neurologic Exam: alert, oriented x 3, cooperative, systems qa analyst II-XII nml as tested, normal mood/affect, sensation nml Skin Exam: normal color, warm, dry SpO2 Interpretation: normal O2 Delivery: Room Air - Course Nursing assessment & vital signs reviewed: Yes Ordered Tests: Active Orders 24 hr Category Date Time Status CERVICAL SPINE WO CONTRAST [CT] Stat Exams 01/15/23 19:53 Taken HEAD WITHOUT CONTRAST [CT] Stat Exams 01/15/23 19:53 Taken - Progress Progress: unchanged Progress Note: 01/15/23 19:54 Patient's medical issues 1 of low complexity. The level of complexity in the work-up performed is based on review of the patient's past medical history review of the patient's medication list, review the patient's drug allergy list, history of present illness and physical findings on examination. The work-up in this patient includes a CT scan of the head and CT scan of the cervical spine both without contrast 01/15/23 21:02 CT scan of the cervical spine without contrast shows no acute fracture or subluxation. There is evidence of degenerative disc disease. This study was interpreted by the radiologist and I reviewed the impression. CT scan of the head without contrast shows no gross acute abnormality. There is evidence of motion artifact. This study was interpreted by the radiologist and I reviewed the impression. Counseled pt/family regarding: diagnosis, need for follow-up, rad results Medical Desision Making - Independent Historian Additional History obtained from: Family - Diagnostic Testing Diagnostic test were ordered, analyzed, and reviewed by me: Yes Radiological Interpretation: Reviewed by me, Teleradiologist Report - Risk of complications Low Risk: Low risk of morbidity from additional dx testing or treatment - Departure Departure Disposition: Home Clinical Impression: Fall with no significant injury, Head injury Condition: Stable Critical Care Time: No Referrals: JEMMA CARTER MD [Primary Care Provider] - Follow up/PCP as directed Additional Instructions: Continue medication as prescribed. Follow-up with your primary care provider by phone on 01/16/2023, to make arranges for further evaluation and follow-up in the next 3 to 5 days.
[2023-01-15 19:42] VITALS: PULSE 92; TEMP 99
[2023-01-15 21:17] VITALS: BP 120/81; RESP 16; O2SAT 95
--- NOTE | 2023-01-16 08:57 | XRAY ---
Indication: Head injury following fall. Blood thinner therapy. Multiple contiguous axial images obtained through the head without contrast. Comparison: November 30, 2022 Mid and base of brain slightly degraded by motion artifact. No gross acute intracranial hemorrhage, abnormal extra-axial fluid collection, or mass effect. Fourth ventricle is midline without hydrocephalus. Marley-white matter differentiation preserved. Bony calvarium is grossly intact. Visualized paranasal sinuses and mastoid air cells are clear. Impression: Motion artifact. No gross new/acute intracranial abnormalities.
--- NOTE | 2023-01-16 08:59 | XRAY ---
Indication: Head injury following fall. Blood thinner therapy. Multiple contiguous axial images obtained through the cervical spine. Sagittal and coronal reformatted images obtained. Comparison: April 19, 2022. Stable beam artifact from C4-C7 fusion hardware/intervertebral spacers. Axial images again negative for acute fracture or suspicious bony lesions. Grossly stable mild/moderate C5-C7 degenerative endplate spurring again greatest at C6-C7. Stable moderate atlantoaxial degenerative changes. Sagittal and coronal reformatted images again demonstrate normal alignment. No acute compression fracture, subluxation, or jumped facet. Normal appearing craniocervical junction. Visualized noncontrasted soft tissues including lung apices are unremarkable. Patient is edentulous. Impression: 1. Again beam artifact from C4-C7 fusion hardware. 2. Continued negative for acute fracture/subluxation. 3. Grossly stable multilevel degenerative changes.
== END 2023-01-15 21:17 | disposition home or self-care (01) ==
LOC: ED 19:05
DX: S09.90XA Unspecified injury of head, initial encounter (principal); W18.30XA Fall on same level, unspecified, initial encounter; Y93.E2 Activity, laundry; R29.6 Repeated falls; R51.9 Headache, unspecified; E11.42 Type 2 diabetes mellitus with diabetic polyneuropathy; I10 Essential (primary) hypertension; E78.5 Hyperlipidemia, unspecified; Z79.02 Long term (current) use of antithrombotics/antiplatelets; Z79.84 Long term (current) use of oral hypoglycemic drugs; Z79.899 Other long term (current) drug therapy
CPT/HCPCS: 70450; 72125; 99283

== ENCOUNTER 2023-03-06 09:12 | Emergency (ER) | payer OTHER ==
--- NOTE | 2023-03-06 09:36 | ERPHSYRPT ---
- History of Present Illness Time Seen by Provider: 03/06/23 09:35 Source: patient, family Exam Limitations: no limitations Physician History: This is a 57-year-old white female patient who is obese and presents to the emergency department 5 days after having a feeding tube in place secondary to failing swallowing study. Patient is concerned because she does not know how to care for the feeding tube or what to do next or when to start her tube feeds. She also is concerned because to "caps" with sutures in place fell off. Patient states that she called the office several times on 03/04/2023 and never received a call back. She has no significant complaints. She did notice some blood within the tube. Patient has a history of hypertension, anxiety/depression, gastroesophageal reflux disease, diabetes and is on Plavix. Timing/Duration: day(s) Severity: mild Associated Symptoms: denies symptoms Allergies/Adverse Reactions: bee venom protein (honey bee) Allergy (Verified 01/15/23 19:51) lamotrigine Allergy (Verified 01/15/23 19:51) oxcarbazepine Allergy (Verified 01/15/23 19:51) Rash Itsfppa-OIW-NpD Reductase Inhibitor [Swhybmf-Zrj-Mzn Reductase Inhibitor] Allergy (Verified 01/15/23 19:51) Home Medications: Carvedilol [Coreg 6.25 MG] 12.5 mg PO BID 07/31/15 [History] Metformin HCl 1000 mg [Glucophage 1000 MG] 1,000 mg PO BID 07/31/15 [History] Amitriptyline HCl 25 mg [Elavil 25 mg] 150 mg PO HS 06/04/18 [History] Baclofen 10 mg [Lioresal 10 mg] 10 mg PO TID 06/04/18 [History] Meclizine HCl 25 mg [Antivert 25 mg] 12.5 mg PO TID PRN 06/04/18 [History] Omeprazole 40 mg PO BID 06/04/18 [History] buPROPion HCL [Wellbutrin Sr] 200 mg PO BID 06/04/18 [History] Buspirone HCl 7.5 mg PO BID 04/19/22 [History] Cilostazol 100 mg [Pletal 100 MG] 100 mg PO BID 04/19/22 [History] Clopidogrel Bisulfate [Plavix] 75 mg PO DAILY 04/19/22 [History] Ezetimibe 10 mg [Zetia 10 MG] 10 mg PO DAILY 04/19/22 [History] Lisinopril 10 mg [Zestril 10 MG] 10 mg PO DAILY 01/15/23 [History] Hx Tetanus, Diphtheria Vaccination/Date Given: Yes Hx Influenza Vaccination/Date Given: No Hx Pneumococcal Vaccination/Date Given: Yes Travel Risk - International Travel Have you traveled outside of the country in past 3 weeks: No - Coronavirus Screening Are you exhibiting any of the following symptoms?: No Close contact with a COVID-19 positive Pt in past 14-21 Days: No - Vaccine Status Have you recieved a Covid-19 vaccination: Yes [employer]: [employer] - Vaccination Dates Date of 2cond Vaccination (if applicable): n/a - Review of Systems Constitutional: No Symptoms Eyes: No Symptoms Ears, Nose, & Throat: No Symptoms Respiratory: No Symptoms Cardiac: No Symptoms Abdominal/Gastrointestinal: No Symptoms, Other (Feeding tube in place) Genitourinary Symptoms: No Symptoms ( abdominal wall) Musculoskeletal: No Symptoms Skin: No Symptoms Neurological: No Symptoms Psychological: No Symptoms Endocrine: No Symptoms Hematologic/Lymphatic: No Symptoms Immunological/Allergic: No Symptoms All Other Systems: Reviewed and Negative - Past Medical History Pertinent Past Medical History: Yes Neurological History: Stroke ENT History: Other Cardiac History: High Cholesterol, Hypertension Respiratory History: No Pertinent History Endocrine Medical History: Diabetes Type II Musculoskeletal History: Osteoarthritis GI Medical History: GERD History: No Pertinent History Psycho-Social History: Anxiety Female Reproductive Disorders: No Pertinent History Other Medical History: 7 STROKES, CEREBRAL ATHEROSCLEROSIS, CERVICAL SPONDYLITIC CORD COMPRESSION, C-SPINE SURGERY AT C4-5 IN 2011, C-SPINE FUSION, DMII WITH POLYNEUROPATHY, DIFFUSE AXONAL NEUROPATHY, THROAT CANCER, CERVICAL RADICULOPA THY, VERY LOW BP. - Past Surgical History Past Surgical History: Yes Neuro Surgical History: No Pertinent History Cardiac: No Pertinent History Respiratory: No Pertinent History Gastrointestinal: No Pertinent History Genitourinary: No Pertinent History, Kidney Transplant Musculoskeletal: Other Female Surgical History: No Pertinent History Other Surgical History: neck surgery - Social History Smoking Status: Former smoker How long have you smoked: yrs Exposure to second hand smoke: Yes Drug Use: marijuana, methamphetamines Patient Lives Alone: No - Nursing Vital Signs Nursing Vital Signs: Initial Vital Signs Temperature 97.8 F 03/06/23 10:05 Pulse Rate 75 03/06/23 10:05 Respiratory Rate 20 03/06/23 10:05 Blood Pressure 154/85 03/06/23 10:05 O2 Sat by Pulse Oximetry 95 03/06/23 10:05 Pain Scale Pain Intensity 0 - Physical Exam General Appearance: no apparent distress, alert, anxiety, obese Eye Exam: PERRL/EOMI, eyes nml inspection Ears, Nose, Throat Exam: normal ENT inspection, moist mucous membranes Neck Exam: normal inspection, non-tender, supple, full range of motion Respiratory Exam: airway intact, No chest tenderness, No respiratory distress Gastrointestinal/Abdomen Exam: soft, normal bowel sounds, other (Feeding tube in place. Feeding tube site without evidence of bleeding or infection.), No te nderness Pelvic Exam: not done Rectal Exam: not done Back Exam: normal inspection, normal range of motion, No CVA tenderness, No vertebral tenderness Extremity Exam: normal inspection, normal range of motion, pelvis stable Neurologic Exam: alert, oriented x 3, cooperative, rheumatology specialist II-XII nml as tested, normal mood/affect, nml cerebellar function, nml station & gait, sensation nml Skin Exam: normal color, warm, dry Lymphatic Exam: No adenopathy SpO2 Interpretation: normal O2 Delivery: Room Air - Course Nursing assessment & vital signs reviewed: Yes - Progress Progress: unchanged Progress Note: 03/06/23 11:16 This patient's medical issue is 1 of low complexity. The level complexity in the workup performed is based on review of the patient's past medical history, review of patient's medication list, review of the patient's drug allergy list, history of present illness and physical findings on examination. This patient does not require any laboratory or radiographic studies. The feeding tube that has been placed 5 days ago appears to be intact. We will flush it and drain it to make sure it is functioning well. The 2 items that "fell off" have sutures in place. These may be stabilizing/security "caps". It is unclear to me at this point. However, there is nothing from the emergency standpoint that needs to be done. We will contact the office of the physician who placed this tube and have them contact the patient to go over the care of the feeding tube as well as when to start her tube feeds. Counseled pt/family regarding: diagnosis, need for follow-up Medical Desision Making - Independent Historian Additional History obtained from: Family - Diagnostic Testing Diagnostic test were ordered, analyzed, and reviewed by me: No - Risk of complications Low Risk: Low risk of morbidity from additional dx testing or treatment - Departure Departure Disposition: Home Clinical Impression: Uses feeding tube Condition: Stable Critical Care Time: No Referrals: JEMMA CARTER MD [Primary Care Provider] - Follow up/PCP as directed Additional Instructions: Contact the surgeons/service that placed the feeding tube for instructions on caring for the tube as well as when to start your tube feeds and informed them that these 2 items/caps "fell off".
[2023-03-06 10:10] VITALS: RESP 20; TEMP 97.8
[2023-03-06 11:28] VITALS: BP 124/84; PULSE 95; O2SAT 98
== END 2023-03-06 11:42 | disposition home or self-care (01) ==
LOC: ED 09:12
DX: Z43.1 Encounter for attention to gastrostomy (principal); E78.5 Hyperlipidemia, unspecified; I10 Essential (primary) hypertension; E11.9 Type 2 diabetes mellitus without complications; Z79.84 Long term (current) use of oral hypoglycemic drugs; Z79.02 Long term (current) use of antithrombotics/antiplatelets; Z79.899 Other long term (current) drug therapy
CPT/HCPCS: 99282

== ENCOUNTER 2023-09-15 09:14 | Emergency (ER) | payer OTHER ==
--- NOTE | 2023-09-15 09:28 | ERPHSYRPT ---
- History of Present Illness Time Seen by Provider: 09/15/23 09:16 Source: patient Exam Limitations: no limitations Physician History: Pt came in to ER because the tip of her feeding tube cracked and now leaks; denies chest pain, shortness of air, fever, vomiting, abdominal pain; admits to chronic intermittent diarrhea for the past 6 months. Allergies/Adverse Reactions: bee venom protein (honey bee) Allergy (Verified 09/15/23 09:18) lamotrigine Allergy (Verified 09/15/23 09:18) oxcarbazepine Allergy (Verified 09/15/23 09:18) Rash Uymuqce-NTE-MnH Reductase Inhibitor [Tvenerw-Poq-Hmg Reductase Inhibitor] Allergy (Verified 09/15/23 09:18) Home Medications: Carvedilol [Coreg 6.25 MG] 12.5 mg PO BID 07/31/15 [History] Metformin HCl 1000 mg [Glucophage 1000 MG] 1,000 mg PO BID 07/31/15 [History] Amitriptyline HCl 25 mg [Elavil 25 mg] 150 mg PO HS 06/04/18 [History] Baclofen 10 mg [Lioresal 10 mg] 10 mg PO TID 06/04/18 [History] Meclizine HCl 25 mg [Antivert 25 mg] 12.5 mg PO TID PRN 06/04/18 [History] Omeprazole 40 mg PO BID 06/04/18 [History] buPROPion HCL [Wellbutrin Sr] 200 mg PO BID 06/04/18 [History] Buspirone HCl 7.5 mg PO BID 04/19/22 [History] Cilostazol 100 mg [Pletal 100 MG] 100 mg PO BID 04/19/22 [History] Clopidogrel Bisulfate [Plavix] 75 mg PO DAILY 04/19/22 [History] Ezetimibe 10 mg [Zetia 10 MG] 10 mg PO DAILY 04/19/22 [History] Lisinopril 10 mg [Zestril 10 MG] 10 mg PO DAILY 01/15/23 [History] Hx Tetanus, Diphtheria Vaccination/Date Given: Yes Hx Influenza Vaccination/Date Given: No Hx Pneumococcal Vaccination/Date Given: Yes - Review of Systems Constitutional: No Fever Respiratory: No Dyspnea Cardiac: No Chest Pain Abdominal/Gastrointestinal: Diarrhea, No Abdominal Pain, No Vomiting - Past Medical History Pertinent Past Medical History: Yes Neurological History: Stroke ENT History: Other Cardiac History: High Cholesterol, Hypertension Respiratory History: No Pertinent History Endocrine Medical History: Diabetes Type II Musculoskeletal History: Osteoarthritis GI Medical History: GERD History: No Pertinent History Psycho-Social History: Anxiety Female Reproductive Disorders: No Pertinent History Other Medical History: 7 STROKES, CEREBRAL ATHEROSCLEROSIS, CERVICAL SPONDYLITIC CORD COMPRESSION, C-SPINE SURGERY AT C4-5 IN 2011, C-SPINE FUSION, DMII WITH POLYNEUROPATHY, DIFFUSE AXONAL NEUROPATHY, THROAT CANCER, CERVICAL RADICULOPATHY, VERY LOW BP. - Past Surgical History Past Surgical History: Yes Neuro Surgical History: No Pertinent History Cardiac: No Pertinent History Respiratory: No Pertinent History Gastrointestinal: No Pertinent History Genitourinary: No Pertinent History, Kidney Transplant Musculoskeletal: Other Female Surgical History: No Pertinent History Other Surgical History: neck surgery - Social History Smoking Status: Former smoker How long have you smoked: yrs Exposure to second hand smoke: Yes Drug Use: marijuana, methamphetamines Patient Lives Alone: No - Nursing Vital Signs Nursing Vital Signs: Initial Vital Signs Temperature 97.0 F 09/15/23 09:23 Pulse Rate 82 09/15/23 09:23 Respiratory Rate 18 09/15/23 09:23 Blood Pressure 165/125 09/15/23 09:23 O2 Sat by Pulse Oximetry 98 09/15/23 09:23 Pain Scale Pain Intensity 0 - Physical Exam General Appearance: alert Eye Exam: PERRL/EOMI Ears, Nose, Throat Exam: pharynx normal, moist mucous membranes Neck Exam: normal inspection Respiratory Exam: lungs clear Cardiovascular Exam: normal heart sounds Gastrointestinal/Abdomen Exam: normal bowel sounds, other (G-tube in place with a small(~ 2mm) crack at the tip) Neurologic Exam: alert, cooperative Skin Exam: warm, dry Procedures - Additional Procedures Additional Procedures: gastric tube replacement - Radiology Exams Abdomen X-ray Interpretation: Teleradiologist Report (Hardly seen G-tube with its tip appears at the left lateral border of L1 vertebra. please correlate clinically and follow up. See rest of report.) - CT Exams Abdomen/Pelvis CT Interpretation: Tele-radiologist Report (Normally placed gastrostomy tube. See rest of report.) Ordered Tests: Active Orders 24 hr Category Date Time Status ACO SDOH Referral ONCE Cons 09/15/23 09:31 Active ABDOMEN 2 VIEW Stat Exams 09/15/23 09:51 Completed ABDOMEN AND PELVIS W/0 CONTRAS [CT] Stat Exams 09/15/23 11:03 Completed - Progress Counseled pt/family regarding: diagnosis, need for follow-up, rad results Medical Desision Making - Diagnostic Testing Diagnostic test were ordered, analyzed, and reviewed by me: Yes Radiological Interpretation: Teleradiologist Report - Departure Departure Disposition: Home Clinical Impression: gastrostomy tube placement Condition: Stable Critical Care Time: No Referrals: JEMMA CARTER MD [Primary Care Provider] - Follow up/PCP as directed Instructions: How to care for a G tube or G button Additional Instructions: Follow up with private doctor tomorrow.
[2023-09-15 09:31] VITALS: TEMP 97
--- NOTE | 2023-09-15 10:48 | XRAY ---
CLINICAL HISTORY: Check for G-tube placement COMPARISON: None. TECHNIQUE: X-ray abdomen AP view in supine and standing position. FINDINGS: The G tube is hardly seen with its tip seen overlying the left lateral border of the L1 vertebra. A small radio opaque shadow is noted at the left hypochondrial region. Nonobstructive bowel gas pattern seen. Visualized bones show degenerative changes. IMPRESSION: 1. Hardly seen G tube with its tip appears at the left lateral border of L1 vertebra. please correlate clinically and follow up. 2. Left hypochondrial small radio opaque shadow could be renal stone. Electronically Signed by: Walter Kumar MD. (09/15/2023 10:43:51 EDT)
--- NOTE | 2023-09-15 12:40 | XRAY ---
CLINICAL HISTORY: G-tube placement COMPARISON: CR Abd on the same day was reviewed. TECHNIQUE: Axial CT scan of the abdomen and pelvis without intravenous contrast administration with multiple reformats. One of the following dose reduction techniques were utilized for this exam: Automated exposure control, adjustment of the mA and/or kV according to patient size, use of iterative reconstruction FINDINGS: A gastrostomy tube is seen inside the gastric lumen. The liver is of average size, regular contour and homogeneous texture with no focal lesion could be detected on non-contrast basis. No intra hepatic biliary radical dilatation. The GB appears unremarkable. The spleen is of average size and shape with homogeneous parenchyma and no focal lesion could be noted on non-contrast basis. Both kidneys are of normal size, shape and parenchymal thickness with no stones, back pressure changes or space occupying lesions on non-contrast basis. A small hypodense lesion is noted at the right kidney likely a cyst. The other retroperitoneal structures including the pancreas and adrenal glands are grossly within normal limits. Colonic diverticulosis is noted without diverticulitis. No significant lymph kalyan enlargement or ascetic fluid collection. The appendix appears unremarkable. The uterus, both adnexa and ischiorectal fossae show normal CT appearance. Normal filling of the urinary bladder with no stones, masses, or diverticula. Atherosclerotic calcification of the aorta, its branches and splenic artery are noted. Bone window settings showed degenerative changes of the lumbar spine, yet no evidence of fractures or destructive lesions. Lung window settings showed normal appearance of both basal lung segments. IMPRESSION: 1. Normally placed gastrostomy tube. 2. Colonic diverticulosis without diverticulitis. 3. The previously seen radio-opaque shadow at the left hypochondrium is believed to be splenic artery calcification. Electronically Signed by: Walter Kumar MD. (09/15/2023 12:35:45 EDT)
[2023-09-15 12:47] VITALS: O2SAT 98
[2023-09-15 13:25] VITALS: BP 133/79; PULSE 72; RESP 16
== END 2023-09-15 13:25 | disposition home or self-care (01) ==
LOC: ED 09:14
DX: K94.29 Other complications of gastrostomy (principal); R19.7 Diarrhea, unspecified; E78.5 Hyperlipidemia, unspecified; I10 Essential (primary) hypertension; E11.42 Type 2 diabetes mellitus with diabetic polyneuropathy; Z79.84 Long term (current) use of oral hypoglycemic drugs; Z79.02 Long term (current) use of antithrombotics/antiplatelets; Z79.899 Other long term (current) drug therapy
CPT/HCPCS: 43762; 74021; 74176; 99283

== ENCOUNTER 2023-11-27 05:43 | Emergency (ER) | payer OTHER ==
[2023-11-27 05:50] VITALS: TEMP 97.6
--- NOTE | 2023-11-27 06:26 | ERPHSYRPT ---
- History of Present Illness Time Seen by Provider: 11/27/23 06:00 Source: patient Exam Limitations: no limitations Patient Subjective Stated Complaint: my feeding tube came out Triage Nursing Assessment: pt ambulated into ER without diff, spouse at bedside. Pt c/o feeding tube came out this morning when she was getting out of bed. Area where feeding tube was is red, with scant amt of blood noted. Abd lg, soft with active bs x4 quad, nontender. Physician History: 58-year-old female with a history of laryngeal cancer and a aspiration risk presents to our ED for feeding tube replacement. Patient states she was getting up this morning to go to the restroom. She accidentally pulled her feeding tube out. The feeding tube was placed back in September. No other complaints. No pain no bleeding. No nausea no vomiting. Patient otherwise asymptomatic. Patient requesting we replace her feeding tube. Feeding tube is 20 Bhutanese 20 mL. Portions of this note were created with voice recognition technology. There may be grammatical, spelling, punctuation or sound alike errors Timing/Duration: today Severity: moderate Modifying Factors: Improves With: nothing Associated Symptoms: denies symptoms Allergies/Adverse Reactions: bee venom protein (honey bee) Allergy (Verified 11/27/23 05:58) lamotrigine Allergy (Verified 11/27/23 05:58) oxcarbazepine Allergy (Verified 11/27/23 05:58) Rash Azugnei-QWQ-QyZ Reductase Inhibitor [Ddpzwwe-Jxv-Erv Reductase Inhibitor] Allergy (Verified 11/27/23 05:58) Home Medications: Carvedilol [Coreg 6.25 MG] 12.5 mg PO BID 07/31/15 [History] Metformin HCl 1000 mg [Glucophage 1000 MG] 1,000 mg PO BID 07/31/15 [History] Amitriptyline HCl 25 mg [Elavil 25 mg] 150 mg PO HS 06/04/18 [History] Baclofen 10 mg [Lioresal 10 mg] 10 mg PO TID 06/04/18 [History] Meclizine HCl 25 mg [Antivert 25 mg] 12.5 mg PO TID PRN 06/04/18 [History] Omeprazole 40 mg PO BID 06/04/18 [History] buPROPion HCL [Wellbutrin Sr] 200 mg PO BID 06/04/18 [History] Buspirone HCl 7.5 mg PO BID 04/19/22 [History] Cilostazol 100 mg [Pletal 100 MG] 100 mg PO BID 04/19/22 [History] Clopidogrel Bisulfate [Plavix] 75 mg PO DAILY 04/19/22 [History] Ezetimibe 10 mg [Zetia 10 MG] 10 mg PO DAILY 04/19/22 [History] Hx Tetanus, Diphtheria Vaccination/Date Given: Yes Hx Influenza Vaccination/Date Given: Yes Hx Pneumococcal Vaccination/Date Given: Yes Travel Risk - International Travel Have you traveled outside of the country in past 3 weeks: No - Emerging Infectious Disease Are you exhibiting symptoms associated with any current EIDs: No - Review of Systems Constitutional: No Symptoms, No Fever, No Chills Eyes: No Symptoms Ears, Nose, & Throat: No Symptoms Respiratory: No Symptoms, No Cough, No Dyspnea Cardiac: No Chest Pain, No Edema, No Syncope Abdominal/Gastrointestinal: No Symptoms, No Abdominal Pain, No Nausea, No Vomiting, No Diarrhea Genitourinary Symptoms: No Symptoms, No Dysuria Musculoskeletal: No Symptoms, No Back Pain, No Neck Pain Skin: No Symptoms, No Rash Neurological: No Symptoms, No Dizziness, No Focal Weakness, No Sensory Changes Psychological: No Symptoms Endocrine: No Symptoms Hematologic/Lymphatic: No Symptoms Immunological/Allergic: No Symptoms All Other Systems: Reviewed and Negative - Past Medical History Pertinent Past Medical History: Yes Neurological History: Stroke ENT History: Other Cardiac History: High Cholesterol, Hypertension Respiratory History: No Pertinent History Endocrine Medical History: Diabetes Type II Musculoskeletal History: Osteoarthritis GI Medical History: GERD History: No Pertinent History Psycho-Social History: Anxiety Female Reproductive Disorders: No Pertinent History Other Medical History: 7 STROKES, CEREBRAL ATHEROSCLEROSIS, CERVICAL SPONDYLITIC CORD COMPRESSION, C-SPINE SURGERY AT C4-5 IN 2010, C-SPINE FUSION, DMII WITH POLYNEUROPATHY, DIFFUSE AXONAL NEUROPATHY, THROAT CANCER, CERVICAL RADICULOPATHY, VERY LOW BP. - Past Surgical History Past Surgical History: Yes Neuro Surgical History: No Pertinent History Cardiac: No Pertinent History Respiratory: No Pertinent History Gastrointestinal: No Pertinent History Genitourinary: No Pertinent History Musculoskeletal: Other Female Surgical History: Tubal Ligation Other Surgical History: neck surgery, g-tube placement - Social History Smoking Status: Former smoker How long have you smoked: yrs Exposure to second hand smoke: Yes Drug Use: none Patient Lives Alone: No - Social Determinants of Health Will the patient participate in the screening: Yes Do you worry about a steady place to live?: No Do you have any problems with any of the following?: No known problems In the past 12 months,have you had to go without utilities?: No Transportation Issues: No Has anyone in your support network made you feel unsafe?: No Have you or anyone in your house had to go without enough: No - Nursing Vital Signs Nursing Vital Signs: Initial Vital Signs Temperature 97.6 F 11/27/23 05:49 Pulse Rate 75 11/27/23 05:49 Respiratory Rate 18 11/27/23 05:49 Blood Pressure 149/93 11/27/23 05:49 O2 Sat by Pulse Oximetry 98 11/27/23 05:49 Pain Scale Pain Intensity 2 - Physical Exam General Appearance: no apparent distress, alert Eye Exam: PERRL/EOMI, eyes nml inspection Ears, Nose, Throat Exam: normal ENT inspection, TMs normal, pharynx normal, moist mucous membranes Neck Exam: normal inspection, non-tender, supple, full range of motion Respiratory Exam: normal breath sounds, lungs clear, No respiratory distress Cardiovascular Exam: regular rate/rhythm, normal heart sounds, normal peripheral pulses Gastrointestinal/Abdomen Exam: soft, normal bowel sounds, No tenderness, No mass Back Exam: normal inspection, normal range of motion, No CVA tenderness, No vertebral tenderness Extremity Exam: normal inspection, normal range of motion, pelvis stable Neurologic Exam: alert, oriented x 3, cooperative, normal mood/affect, nml cerebellar function, nml station & gait, sensation nml, No motor deficits Skin Exam: normal color, warm, dry, No rash Lymphatic Exam: No adenopathy SpO2 Interpretation: normal SpO2: 98 O2 Delivery: Room Air - Course Nursing assessment & vital signs reviewed: Yes Ordered Tests: Active Orders 24 hr Category Date Time Status KUB Stat Exams 11/27/23 06:29 Ordered - Progress Progress: improved Progress Note: 58-year-old female presents to our ED for placement of G-tube. Patient's G-tube was removed inadvertently prior to arrival. G-tube is a 20 Bhutanese 20 cc tube. The tube was replaced with a similar tube 22 Bhutanese 20 cc. The balloon was filled with 10 cc of normal saline. Balloon placement was checked using a KUB and Gastrografin. Formal read pending. Patient otherwise feels well. She voices no other complaints or concerns at this time. Portions of this note were created with voice recognition technology. There may be grammatical, spelling, punctuation or sound alike errors Complexity problem addressed is moderate acute complicated. No critical care time. Complex of data reviewed and analyzed is moderate. Test ordered test reviewed results analyzed and correlated clinically with history and physical exam. Risk of complication and or risk of morbidity/mortality patient management is low. Vital stable. Time spent to discharge patient approximately 20 minutes. Plan of care established for shared decision making. No social determinants of health present impede follow-up. Portions of this note were created with voice recognition technology. There may be grammatical, spelling, punctuation or sound alike errors 11/27/23 06:50 Counseled pt/family regarding: diagnosis, need for follow-up - Departure Departure Disposition: Home Clinical Impression: Gastrojejunostomy tube dislodgement Condition: Stable Critical Care Time: No Referrals: JEMMA CARTER MD [Primary Care Provider] - Follow up/PCP as directed Additional Instructions: Discharge/Care Plan SARAH LUND was seen on 11/27/23 in the Emergency Room. The patient was counseled regarding Diagnosis,Lab results, Imaging studies, need for follow up and when to return to the Emergency Room. Prescriptions given: Discharge Note I have spoken with the patient and/or caregivers. I have explained the patient's condition, diagnosis and treatment plan based on the information available to me at this time. I have answered the patient's and/or caregiver's questions and addressed any concerns. The patient and/or caregivers have as good understanding of the patient's diagnosis, condition and treatment plan as can be expected at this point. The vital signs have been stable. The patient's condition is stable and appropriate for discharge from the emergency department. The patient will pursue further outpatient evaluation with the primary care physician or other designated or consulting physician as outlined in the discharge instructions. The patient and/or caregivers are agreeable to this plan of care and follow-up instructions have been explained in detail. The patient and/or caregivers have received these instruction. The patient/and or caregivers are aware that any significant change in condition or worsening of symptoms should prompt an immediate return to this or the closest emergency department or call 911.
[2023-11-27 07:40] VITALS: BP 169/90; PULSE 70; RESP 18; O2SAT 96
--- NOTE | 2023-11-27 08:53 | XRAY ---
Indication: Feeding tube placement. Comparison: None Approximately 30 cc diluted Gastrografin mixed with saline injected in indwelling feeding tube. KUB demonstrates contrast collecting in gastric lumen and small bowel loops. No abnormal contrast extravasation. Bowel gas pattern nonobstructed. Osseous structures intact with osteopenia and moderate degenerative changes both hips.
== END 2023-11-27 09:16 | disposition home or self-care (01) ==
LOC: ED 05:43
DX: Z43.1 Encounter for attention to gastrostomy (principal); E78.5 Hyperlipidemia, unspecified; I10 Essential (primary) hypertension; E11.9 Type 2 diabetes mellitus without complications; Z79.02 Long term (current) use of antithrombotics/antiplatelets; Z79.84 Long term (current) use of oral hypoglycemic drugs; Z79.899 Other long term (current) drug therapy
CPT/HCPCS: 74018; 99282; L0625; Q9963

== ENCOUNTER 2023-12-25 14:34 | Emergency (ER) | payer OTHER ==
--- NOTE | 2023-12-25 14:44 | ERPHSYRPT ---
- History of Present Illness Time Seen by Provider: 12/25/23 14:43 Source: patient Exam Limitations: no limitations Physician History: This is a morbidly obese 58-year-old white female patient of Dr. Rice who has history of laryngeal cancer and has had postoperative band chemoradiation to this site with a history of recurrent and silent aspiration. A feeding tube was placed into her stomach approximately 10 months ago recently, she began having drainage around the gastric feeding tube and was wanting it reevaluated. The skin in the area is slightly reddened. Patient has not had any fever. She denies chest pain. She denies abdominal pain. Patient has a history of diabetes, gastroesophageal reflux disease, hypertension and anxiety and is on Plavix. Timing/Duration: today Severity: mild Associated Symptoms: denies symptoms Allergies/Adverse Reactions: bee venom protein (honey bee) Allergy (Verified 11/27/23 05:58) lamotrigine Allergy (Verified 11/27/23 05:58) oxcarbazepine Allergy (Verified 11/27/23 05:58) Rash Qrolytt-RMQ-XaE Reductase Inhibitor [Bfmlfsl-Tuo-Kdg Reductase Inhibitor] Allergy (Verified 11/27/23 05:58) Home Medications: Carvedilol [Coreg 6.25 MG] 12.5 mg PO BID 07/31/15 [History] Metformin HCl 1000 mg [Glucophage 1000 MG] 1,000 mg PO BID 07/31/15 [History] Amitriptyline HCl 25 mg [Elavil 25 mg] 150 mg PO HS 06/04/18 [History] Baclofen 10 mg [Lioresal 10 mg] 10 mg PO TID 06/04/18 [History] Meclizine HCl 25 mg [Antivert 25 mg] 12.5 mg PO TID PRN 06/04/18 [History] Omeprazole 40 mg PO BID 06/04/18 [History] buPROPion HCL [Wellbutrin Sr] 200 mg PO BID 06/04/18 [History] Buspirone HCl 7.5 mg PO BID 04/19/22 [History] Cilostazol 100 mg [Pletal 100 MG] 100 mg PO BID 04/19/22 [History] Clopidogrel Bisulfate [Plavix] 75 mg PO DAILY 04/19/22 [History] Ezetimibe 10 mg [Zetia 10 MG] 10 mg PO DAILY 04/19/22 [History] Hx Tetanus, Diphtheria Vaccination/Date Given: Yes Hx Influenza Vaccination/Date Given: Yes Hx Pneumococcal Vaccination/Date Given: Yes Travel Risk - International Travel Have you traveled outside of the country in past 3 weeks: No - Emerging Infectious Disease Are you exhibiting symptoms associated with any current EIDs: No - Review of Systems Constitutional: No Symptoms Eyes: No Symptoms Ears, Nose, & Throat: No Symptoms Respiratory: No Symptoms Cardiac: No Symptoms Abdominal/Gastrointestinal: No Symptoms, Other (Drainage around gastric feeding tube site intermittently) Genitourinary Symptoms: No Symptoms Musculoskeletal: No Symptoms Skin: No Symptoms Neurological: No Symptoms Psychological: No Symptoms Endocrine: No Symptoms Hematologic/Lymphatic: No Symptoms Immunological/Allergic: No Symptoms All Other Systems: Reviewed and Negative - Past Medical History Pertinent Past Medical History: Yes Neurological History: Stroke ENT History: Other Cardiac History: High Cholesterol, Hypertension Respiratory History: No Pertinent History Endocrine Medical History: Diabetes Type II Musculoskeletal History: Osteoarthritis GI Medical History: GERD History: No Pertinent History Psycho-Social History: Anxiety Female Reproductive Disorders: No Pertinent History Other Medical History: 7 STROKES, CEREBRAL ATHEROSCLEROSIS, CERVICAL SPONDYLITIC CORD COMPRESSION, C-SPINE SURGERY AT C4-5 IN 2010, C-SPINE FUSION, DMII WITH POLYNEUROPATHY, DIFFUSE AXONAL NEUROPATHY, THROAT CANCER, CERVICAL RADICULOPATHY, VERY LOW BP. - Past Surgical History Past Surgical History: Yes Neuro Surgical History: No Pertinent History Cardiac: No Pertinent History Respiratory: No Pertinent History Gastrointestinal: No Pertinent History Genitourinary: No Pertinent History Musculoskeletal: Other Female Surgical History: Tubal Ligation Other Surgical History: neck surgery, g-tube placement - Social History Smoking Status: Former smoker How long have you smoked: yrs Exposure to second hand smoke: Yes Drug Use: none Patient Lives Alone: No - Social Determinants of Health Will the patient participate in the screening: Yes Do you worry about a steady place to live?: No In the past 12 months,have you had to go without utilities?: No Transportation Issues: No Has anyone in your support network made you feel unsafe?: No Have you or anyone in your house had to go without enough: No - Nursing Vital Signs Nursing Vital Signs: Initial Vital Signs Temperature 98.2 F 12/25/23 14:42 Pulse Rate 88 12/25/23 14:42 Respiratory Rate 20 12/25/23 14:42 Blood Pressure 140/83 12/25/23 14:42 O2 Sat by Pulse Oximetry 97 12/25/23 14:42 Pain Scale Pain Intensity 0 - Physical Exam General Appearance: no apparent distress, alert, anxiety, obese Eye Exam: PERRL/EOMI, eyes nml inspection Ears, Nose, Throat Exam: normal ENT inspection, moist mucous membranes Neck Exam: normal inspection, non-tender, supple, full range of motion Respiratory Exam: normal breath sounds, lungs clear, airway intact, No chest tenderness, No respiratory distress Cardiovascular Exam: regular rate/rhythm, normal heart sounds, normal peripheral pulses Gastrointestinal/Abdomen Exam: soft, normal bowel sounds, other, No tenderness Pelvic Exam: not done Rectal Exam: not done Back Exam: normal inspection, normal range of motion, No CVA tenderness, No vertebral tenderness Extremity Exam: normal inspection, normal range of motion, pelvis stable Neurologic Exam: alert, oriented x 3, cooperative, 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 The feeding tube itself had good hartman return of gastric content and 40 mL of free water swiftly flush the catheter tube without leakage around the tube. - Course Nursing assessment & vital signs reviewed: Yes - Progress Progress: improved Progress Note: 12/25/23 16:54 Medical decision making the assignment of low complexity to this patient's medical issue today is based on review of the patient's past medical history, review of the patient's medication list, review patient drug allergy list, history present illness and physical findings on examination. No radiographic or laboratory studies are necessary in the workup of this patient. We will change out her to and inflate the balloon after replacing the gastric feeding tube and flush the new tube. Counseled pt/family regarding: diagnosis, need for follow-up Medical Desision Making - Independent Historian Additional History obtained from: Spouse - Diagnostic Testing Diagnostic test were ordered, analyzed, and reviewed by me: No - Risk of complications Minimal Risk: Minimal risk of morbidity - Departure Departure Disposition: Home Clinical Impression: Complication of feeding tube, Encounter for feeding tube placement Condition: Stable Critical Care Time: No Referrals: JEMMA RICE MD [Primary Care Provider] - Follow up/PCP as directed Additional Instructions: Keep the can around the feeding tube entrance site clean and dry. Cover the skin around the feeding tube site with Desitin/zinc oxide ointment 2-3 times a day. Change to the feeding tube skin site gauze after each application of the Desitin/zinc oxide ointment. Call your ENT specialist to determine further management of the feeding tube. You may use the feeding tube as you were before.
[2023-12-25 16:05] VITALS: TEMP 98; O2SAT 98
[2023-12-25 17:04] VITALS: BP 130/74; PULSE 80; RESP 18
== END 2023-12-25 17:15 | disposition home or self-care (01) ==
LOC: ED 14:34
DX: Z43.1 Encounter for attention to gastrostomy (principal); E78.5 Hyperlipidemia, unspecified; I10 Essential (primary) hypertension; E11.9 Type 2 diabetes mellitus without complications; Z79.84 Long term (current) use of oral hypoglycemic drugs; Z79.02 Long term (current) use of antithrombotics/antiplatelets; Z79.899 Other long term (current) drug therapy
CPT/HCPCS: 43762; 99281

== ENCOUNTER 2024-05-07 18:42 | Emergency (ER) | payer OTHER ==
[2024-05-07 19:53] VITALS: TEMP 96.1
--- NOTE | 2024-05-07 21:52 | ERPHSYRPT ---
- History of Present Illness Time Seen by Provider: 05/07/24 19:35 Source: patient, family Exam Limitations: no limitations Patient Subjective Stated Complaint: pt states she caught her hand on ther g tube and accidentally pulled it out. pt brought tube with her. tube and balloon intact Triage Nursing Assessment: pt alert and oriented, answers questions approp. pt back to room per wheechair and transfers to stretcher per self. respirations nonlabored. skin warm and dry. redness around g tube sidte to lt upper abd. bowel sounds present. Physician History: 58-year-old female with history of vocal cord cancer status postradiation, dysphagia with a PEG tube presented in the ER when she was taking shower and accidentally pulled her tube out around 6:30 PM. Patient denies any pain. No vomiting. Has partially open track, no abdominal tenderness except for around insertion site. Gastric tube is placed then, confirmed with Gastrografin KUB reviewed by me followed by preliminary report from radiology. Patient tolerated procedure very well. Care of gastric tube discussed with patient which she understands and agrees. Allergies/Adverse Reactions: bee venom protein (honey bee) Allergy (Verified 05/07/24 19:53) lamotrigine Allergy (Verified 05/07/24 19:53) oxcarbazepine Allergy (Verified 05/07/24 19:53) Rash [id number] Reductase Inhibitor [[id number] Reductase Inhibitor] Allergy (Verified 05/07/24 19:53) Home Medications: Carvedilol [Coreg 6.25 MG] 12.5 mg PO BID 07/31/15 [History] Metformin HCl 1000 mg [Glucophage 1000 MG] 1,000 mg PO BID 07/31/15 [History] Amitriptyline HCl 25 mg [Elavil 25 mg] 150 mg PO HS 06/04/18 [History] Baclofen 10 mg [Lioresal 10 mg] 10 mg PO TID 06/04/18 [History] Meclizine HCl 25 mg [Antivert 25 mg] 12.5 mg PO TID PRN 06/04/18 [History] Omeprazole 40 mg PO BID 06/04/18 [History] buPROPion HCL [Wellbutrin Sr] 200 mg PO BID 06/04/18 [History] Buspirone HCl 7.5 mg PO BID 04/19/22 [History] Cilostazol 100 mg [Pletal 100 MG] 100 mg PO BID 04/19/22 [History] Clopidogrel Bisulfate [Plavix] 75 mg PO DAILY 04/19/22 [History] Ezetimibe 10 mg [Zetia 10 MG] 10 mg PO DAILY 04/19/22 [History] Hx Tetanus, Diphtheria Vaccination/Date Given: Yes Hx Influenza Vaccination/Date Given: Yes Hx Pneumococcal Vaccination/Date Given: No Immunizations Up to Date: Yes Travel Risk - International Travel Have you traveled outside of the country in past 3 weeks: No - Emerging Infectious Disease Are you exhibiting symptoms associated with any current EIDs: No - Review of Systems Constitutional: No Symptoms Respiratory: No Symptoms Cardiac: No Symptoms Abdominal/Gastrointestinal: Other (G-tube tract) Genitourinary Symptoms: No Symptoms Musculoskeletal: No Symptoms Neurological: No Symptoms - Past Medical History Pertinent Past Medical History: Yes Neurological History: Stroke ENT History: Other Cardiac History: High Cholesterol, Hypertension Respiratory History: No Pertinent History Endocrine Medical History: Diabetes Type II Musculoskeletal History: Osteoarthritis GI Medical History: GERD History: No Pertinent History Psycho-Social History: Anxiety Female Reproductive Disorders: No Pertinent History Other Medical History: 7 STROKES, CEREBRAL ATHEROSCLEROSIS, CERVICAL SPONDYLITIC CORD COMPRESSION, C-SPINE SURGERY AT C4-5 IN 2010, C-SPINE FUSION, DMII WITH POLYNEUROPATHY, DIFFUSE AXONAL NEUROPATHY, THROAT CANCER, CERVICAL RADICULOPATHY, VERY LOW BP. - Past Surgical History Past Surgical History: Yes Neuro Surgical History: No Pertinent History Cardiac: No Pertinent History Respiratory: No Pertinent History Gastrointestinal: No Pertinent History Genitourinary: No Pertinent History Musculoskeletal: Other Female Surgical History: Tubal Ligation Other Surgical History: neck surgery, g-tube placement - Social History Smoking Status: Former smoker How long have you smoked: yrs Exposure to second hand smoke: No Drug Use: none Patient Lives Alone: No - Social Determinants of Health Will the patient participate in the screening: Yes Do you worry about a steady place to live?: No Do you have any problems with any of the following?: No known problems In the past 12 months,have you had to go without utilities?: No Transportation Issues: No Has anyone in your support network made you feel unsafe?: No Have you or anyone in your house had to go without enough: No - Nursing Vital Signs Nursing Vital Signs: Initial Vital Signs Temperature 96.1 F 05/07/24 19:45 Pulse Rate 88 05/07/24 19:45 Respiratory Rate 20 05/07/24 19:45 Blood Pressure 134/88 05/07/24 19:45 O2 Sat by Pulse Oximetry 96 05/07/24 19:45 Pain Scale Pain Intensity 5 - Physical Exam General Appearance: no apparent distress Eye Exam: PERRL/EOMI Respiratory Exam: normal breath sounds, lungs clear Cardiovascular Exam: regular rate/rhythm, normal heart sounds Gastrointestinal/Abdomen Exam: soft, normal bowel sounds, tenderness (Minimal tenderness around G-tube insertion site) Extremity Exam: normal inspection Neurologic Exam: alert, oriented x 3, cooperative Skin Exam: normal color SpO2 Interpretation: normal SpO2: 96 O2 Delivery: Room Air Procedures - Additional Procedures Additional Procedures: gastric tube replacement Progress: Under aseptic measures G-tube is inserted, patient tolerated procedure, confirmed with KUB Gastrografin study with tube in good place. Ordered Tests: Active Orders 24 hr Category Date Time Status CHEST 1 VIEW (PORTABLE) Routine Exams 05/07/24 20:33 Taken KUB Routine Exams 05/07/24 21:05 Taken - Progress Progress: improved Progress Note: 05/07/24 21:50 58-year-old female with history of vocal cord cancer status postradiation, dysphagia with a PEG tube presented in the ER when she was taking shower and accidentally pulled her tube out around 6:30 PM. Patient denies any pain. No vomiting. Has partially open track, no abdominal tenderness except for around insertion site. Gastric tube is placed then, confirmed with Gastrografin KUB reviewed by me followed by preliminary report from radiology. Patient tolerated procedure very well. Care of gastric tube discussed with patient which she understands and agrees. Counseled pt/family regarding: diagnosis, need for follow-up, rad results Medical Desision Making - Independent Historian Additional History obtained from: Spouse - Diagnostic Testing Diagnostic test were ordered, analyzed, and reviewed by me: Yes Radiological Interpretation: Interpreted by me, Reviewed by me - Risk of complications The pt has a mod risk of morbidity or mortality based on: Need for minor surgical intervention in patient with know risk factors - Departure Departure Disposition: Home Clinical Impression: Gastrojejunostomy tube dislodgement Condition: Stable Critical Care Time: No Referrals: JEMMA CARTER MD [Primary Care Provider] - Follow up with PCP 1 day Instructions: Enteral (tube) feeding Additional Instructions: Keep it anchored and follow the precautions to avoid it falling out
[2024-05-07 22:12] VITALS: BP 132/62; PULSE 84; RESP 18; O2SAT 98
--- NOTE | 2024-05-08 08:41 | XRAY ---
Indication: Feeding tube placement. Comparison: November 27, 2023 Approximately 50 cc diluted Gastrografin injected through PEG tube. Single KUB demonstrates Gastrografin collecting within gastric lumen and proximal small bowel loops confirming balloon tip in stomach. No abnormal extravasation or free air. Osseous structures intact again with osteopenia and degenerative changes.
--- NOTE | 2024-05-08 08:53 | XRAY ---
Indication: NG tube placement. Comparison: January 27, 2016 Portable chest does not identify NG tube in [id number]. Lungs inflated with minimal bibasilar subsegmental atelectasis/scarring. Remaining heart and upper lungs unremarkable. Bony thorax intact again with osteopenia and mild degenerative changes. KUB reported separately.
== END 2024-05-07 22:11 | disposition home or self-care (01) ==
LOC: ED 18:42
DX: K94.23 Gastrostomy malfunction (principal); E78.5 Hyperlipidemia, unspecified; I10 Essential (primary) hypertension; E11.9 Type 2 diabetes mellitus without complications; Z79.02 Long term (current) use of antithrombotics/antiplatelets; Z79.84 Long term (current) use of oral hypoglycemic drugs; Z79.899 Other long term (current) drug therapy
CPT/HCPCS: 43247; 43762; 71045; 74018; 99283; 99284